=== PATIENT | female | born 1990 | race Caucasian/White ===

== ENCOUNTER 2025-02-06 14:57 | Emergency (ER) | payer MEDICARE ==
--- NOTE | 2025-02-06 15:52 | CT ---
EXAMINATION TYPE: CT abdomen pelvis wo con CT DLP: 701.1 mGycm, Automated exposure control for dose reduction was used. DATE OF EXAM: 02/06/2025 3:42 PM COMPARISON: none CLINICAL INDICATION:Female, 34 years old with history of Right flank pain; Right flank pain TECHNIQUE: Standard CT of the abdomen and pelvis without IV or oral contrast. Lack of IV or oral co ntrast limits evaluation of solid and hollow organ viscera. Coronal and sagittal reformats were perfo rmed. FINDINGS: LOWER CHEST: Unremarkable noncontrast appearance ABDOMEN LIVER: Unremarkable noncontrast appearance GALLBLADDER AND BILE DUCTS: Unremarkable noncontrast appearance PANCREAS: Unremarkable noncontrast appearance SPLEEN: Unremarkable noncontrast appearance ADRENAL GLANDS: Unremarkable noncontrast appearance. KIDNEYS AND URETERS: No evidence of hydronephrosis. No hydroureter or ureteral calculus identified. T here is a 1.0 cm calculus within the right renal pelvis. Additional nonobstructing right renal lower pole 2 mm calculus. PELVIS BLADDER: Incompletely distended but grossly unremarkable. REPRODUCTIVE: Unremarkable noncontrast appearance ABDOMEN & PELVIS STOMACH AND BOWEL: Stomach and duodenum are unremarkable. No focal bowel wall thickening or surroundi ng inflammatory changes. The appendix is not identified. No inflammatory changes within the right low er quadrant. No evidence of bowel obstruction. PERITONEUM: No evidence of pneumoperitoneum or free fluid. VASCULATURE: No evidence of aortic aneurysm. MUSCULOSKELETAL: No acute osseous abnormalities LYMPH NODES: No gross evidence for lymphadenopathy. SOFT TISSUE/ABDOMINAL WALL: Focal region of left lower back subcutaneous tissue fat necrosis. IMPRESSION: No evidence for obstructive uropathy however there is a 1 cm calculus within the right renal pelvis. Additional punctate nonobstructing right renal lower pole calculus. [facility], , 02/06/2025 3:50 PM
--- NOTE | 2025-02-06 16:02 | ED ---
Abdominal Pain HPI - General Source: patient, RN notes reviewed Mode of arrival: ambulatory Limitations: no limitations <Jessica Álvarez - Last Filed: 02/06/25 15:59> - General Source: patient, RN notes reviewed, old records reviewed Mode of arrival: ambulatory Limitations: no limitations - History of Present Illness MD Complaint: flank pain Location: LLQ Radiation: suprapubic Migration to: L flank Severity: severe Severity scale (1-10): 9 Quality: stabbing Consistency: constant <Sukhwinder Salcido - Last Filed: 02/07/25 04:34> - General Chief Complaint: Abdominal Pain Stated Complaint: Possible kidney stone Time Seen by Provider: 02/06/25 15:50 - History of Present Illness Initial Comments: Quick Note: This is a 34 year old female who presents to the emergency department for right flank pain. States that it had been intermittent over the last week, however today it has been constant and she had associated nausea and vomiting. Reports a history of kidney stones and states that it feels similar. (Jessica Álvarez) This is a 34-year-old female from [place] for kidney stones. Patient has a history of kidney stones and this feels the same (Sukhwinder Salcido) - Related Data Previous Rx's Medication Instructions Recorded Ketorolac [Toradol] 10 mg PO Q6HR #20 tab 02/06/25 Tamsulosin [Flomax] 0.4 mg PO DAILY #7 cap 02/06/25 Allergies Allergy/AdvReac Type Severity Reaction Status Date / Time amoxicillin Allergy Rash/Hives Verified 02/06/25 15:26 Review of Systems ROS Other: All systems not noted in ROS Statement are negative. <Jessica Álvarez - Last Filed: 02/06/25 15:59> ROS Other: All systems not noted in ROS Statement are negative. <Sukhwinder Salcido - Last Filed: 02/07/25 04:34> ROS Statement: Those systems with pertinent positive or pertinent negative responses have been documented in the HPI. Past Medical History Past Medical History: No Reported History History of Any Multi-Drug Resistant Organisms: None Reported Past Surgical History: Section Additional Past Surgical History / Comment(s): kidney stone removal Past Psychological History: No Psychological Hx Reported Smoking Status: Current every day smoker Past Alcohol Use History: None Reported Past Drug Use History: Cocaine <Jessica Álvarez - Last Filed: 02/06/25 15:59> General Exam Limitations: no limitations <Jessica Álvarez - Last Filed: 02/06/25 15:59> - General Exam Comments Initial Comments: Visual Physical Exam Vital signs reviewed General: Well-appearing, nontoxic, no acute distress. Head: Normocephalic, atraumatic Eyes: PERRLA, EOMI ENT: Airway patent Chest: Nonlabored breathing Skin: No visual rash, normal skin tone Neuro: Alert and oriented 3 Musculoskeletal: No gross abnormalities (Jessica Álvarez) Course <Sukwhinder Salcido - Last Filed: 02/07/25 04:34> Vital Signs 02/06/25 02/06/25 15:23 23:01 Temperature 98.1 F 98.7 F Pulse Rate 62 63 Respiratory 16 19 Rate Blood Pressure 97/63 120/91 O2 Sat by Pulse 99 96 Oximetry - Reevaluation(s) Reevaluation #1: 02/07/25 04:33 Medical records reviewed (Sukhwinder Salcido) Reevaluation #2: 02/07/25 04:33 Patient's symptoms improved (Sukhwinder Salcido) Reevaluation #3: 02/07/25 04:33 Patient informed of results questions answered (Sukhwinder Salcido) Reevaluation #4: Was pt. sent in by a medical professional or institution (, PA, OIL FIELD RIG BUILDER, urgent care, hospital, or [place] health [place] facility...) When possible be specific @ -no Did you speak to anyone other than the patient for history (EMS, parent, family, police, friend...)? What history was obtained from this source @ -no Did you review nursing and triage notes (agree or disagree)? Why? @ -agree Are old charts reviewed (outside hosp., previous admission, EMS record, old EKG, old radiological studies, urgent care reports/EKG's, [place] health [place] facility records)? Report findings @ -yes Differential Diagnosis (chest pain, altered mental status, abdominal pain women, abdominal pain men, vaginal bleeding, weakness, fever, dyspnea, syncope, headache, dizziness, GI bleed, back pain, seizure, CVA, palpatations, mental health, musculoskeletal)? @ -prior EKG interpreted by me (3pts min.). @ -yes X-rays interpreted by me (1pt min.). @ -yes negative for acute disease CT interpreted by me (1pt min.). @ -no U/S interpreted by me (1pt. min.). @ -no What testing was considered but not performed or refused? (CT, X-rays, U/S, labs)? Why? @ -none What meds were considered but not given or refused? Why? @ -none Did you discuss the management of the patient with other professionals (pro fessionals i.e. , PA, OIL FIELD RIG BUILDER, lab, RT, psych nurse, social services technician, closet builder, teacher, senior escrow officer, case filler)? Give summary @ -no Was smoking cessation discussed for >3mins.? @ -no Was critical care preformed (if so, how long)? @ -no Were there social determinants of health that impacted care today? How? (Homelessness, low income, unemployed, alcoholism, drug addiction, transportation, low edu. Level, literacy, decrease access to med. care, correction, rehab)? @ -none Was there de-escalation of care discussed even if they declined (Discuss DNR or withdrawal of care, Hospice)? DNR status @ -no What co-morbidities impacted this encounter? (DM, HTN, Smoking, COPD, CAD, Cancer, CVA, ARF, Chemo, Hep., AIDS, mental health diagnosis, sleep apnea, morbid obesity)? @ -none Was patient admitted / discharged? Hospital course, mention meds given and route, prescriptions, significant lab abnormalities, going to OR and other pertinent info. @ - Undiagnosed new problem with uncertain prognosis? @ -no Drug Therapy requiring intensive monitoring for toxicity (Heparin, Nitro, Insulin, Cardizem)? @ -no Were any procedures done? @ -no Diagnosis/symptom? @ - Acute, or Chronic, or Acute on Chronic? @ -Acute Uncomplicated (without systemic symptoms) or Complicated (systemic symptoms)? @ -Complicated Side effects of treatment? @ -no Exacerbation, Progression, or Severe Exacerbation? @ -exacerbation Poses a threat to life or bodily function? How? (Chest pain, [place], [place], pneumonia, PE, COPD, DKA, ARF, appy, cholecystitis, CVA, Diverticulitis, Homicidal, Suicidal, threat to staff... and all critical care pts) @ -yes (uSkhwinder Salcido) Reevaluation #5: Differential Abdominal Pain Women: Appendicitis, Cholecystitis, diverticulosis, ischemic bowel, pancreatitis, hepatitis, UTI, gastroenteritis, AAA, incarcerated hernia, bowel obstruction, constipation, inflammatory bowel, hepatitis, peptic ulcer disease, splenic infarction, perforated viscus, vulvitis, ovarian torsion, PID, kidney stone, placenta abruption, this is not meant to be an all-inclusive list (Sukhwinder Salcido) Medical Decision Making <Jessica Álvarez - Last Filed: 02/06/25 15:59> - Lab Data Result diagrams: 02/06/25 16:39 02/06/25 16:39 - Radiology Data Radiology results: report reviewed (CT of pelvis positive kidney stone), image reviewed <Sukhwinder Salcido - Last Filed: 02/07/25 04:34> - Medical Decision Making I performed the QuickNote portion of this chart. Signed Jessica Álvarez PA-C. (Jessica Álvarez) 34 female with abdominal pain kidney stone pain pain is well-controlled here in the ER no opiates allowed patient can be discharged home (Sukhwinder Salcido) - Lab Data Lab Results 02/06/25 02/06/25 02/06/25 Range/Units 15:44 15:45 16:39 WBC 7.93 (4.50-10.00) 10*3/uL RBC 4.65 (4.10-5.20) 10*6/uL Hgb 13.7 (12.0-15.0) g/dL Hct 40.1 (37.2-46.3) % MCV 86.2 (80.0-97.0) fL MCH 29.5 (27.0-32.0) pg MCHC 34.2 (32.0-37.0) g/dL Plt Count 270 (140-440) 10*3/uL MPV 10.3 (9.5-12.2) fL Immature Gran % (Auto) 0.3 % Neutrophils % 51.3 % Lymphocytes % 40.7 % Monocytes % 5.7 % Eosinophils % 1.5 % Basophils % 0.5 % Immature Gran # 0.02 (0.00-0.04) 10*3/uL Neutrophils # 4.07 (1.80-7.70) 10*3/uL Lymphocytes # 3.23 (0.90-5.00) 10*3/uL Monocytes # 0.45 (0.20-1.00) 10*3/uL Eosinophils # 0.12 (0.04-0.35) 10*3/uL Basophils # 0.04 (0.00-0.10) 10*3/uL Sodium (137-145) mmol/L Potassium (3.5-5.1) mmol/L Chloride (98-107) mmol/L Carbon Dioxide (22-30) mmol/L Anion Gap mmol/L BUN (7-17) mg/dL Creatinine (0.52-1.04) mg/dL Est GFR (CKD-EPI)AfAm (>60 ml/min/1.73 sqM) Est GFR (CKD-EPI)NonAf (>60 ml/min/1.73 sqM) Glucose (74-99) mg/dL Calcium (8.4-10.2) mg/dL Total Bilirubin (0.2-1.3) mg/dL AST (14-36) U/L ALT (4-34) U/L Alkaline Phosphatase (38-126) U/L Total Protein (6.3-8.2) g/dL Albumin (3.5-5.0) g/dL Urine Color Colorless Urine Appearance Cloudy H (Clear) Urine pH 5.5 (5.0-8.0) Ur Specific [place] 1.021 (1.001-1.035) Urine Protein Negative (Negative) Urine Glucose (UA) Negative (Negative) Urine Ketones Negative (Negative) Urine Blood Moderate H (Negative) Urine Nitrite Negative (Negative) Urine Bilirubin Negative (Negative) Urine Urobilinogen <2.0 (<2.0) mg/dL Ur Leukocyte Esterase Trace H (Negative) Urine RBC >182 H (0-5) /hpf Urine WBC 13 H (0-5) /hpf Ur Squamous Epith Cells 7 H (0-4) /hpf Urine Mucus Rare H (None) /hpf Urine HCG, Qual Not Detected (Not Detectd) 02/06/25 Range/Units 16:39 WBC (4.50-10.00) 10*3/uL RBC (4.10-5.20) 10*6/uL Hgb (12.0-15.0) g/dL Hct (37.2-46.3) % MCV (80.0-97.0) fL MCH (27.0-32.0) pg MCHC (32.0-37.0) g/dL Plt Count (140-440) 10*3/uL MPV (9.5-12.2) fL Immature Gran % (Auto) % Neutrophils % % Lymphocytes % % Monocytes % % Eosinophils % % Basophils % % Immature Gran # (0.00-0.04) 10*3/uL Neutrophils # (1.80-7.70) 10*3/uL Lymphocytes # (0.90-5.00) 10*3/uL Monocytes # (0.20-1.00) 10*3/uL Eosinophils # (0.04-0.35) 10*3/uL Basophils # (0.00-0.10) 10*3/uL Sodium 137 (137-145) mmol/L Potassium 4.4 (3.5-5.1) mmol/L Chloride 106 (98-107) mmol/L Carbon Dioxide 24 (22-30) mmol/L Anion Gap 7 mmol/L BUN 15 (7-17) mg/dL Creatinine 0.55 (0.52-1.04) mg/dL Est GFR (CKD-EPI)AfAm >90 (>60 ml/min/1.73 sqM) Est GFR (CKD-EPI)NonAf >90 (>60 ml/min/1.73 sqM) Glucose 91 (74-99) mg/dL Calcium 9.5 (8.4-10.2) mg/dL Total Bilirubin 0.2 (0.2-1.3) mg/dL AST 18 (14-36) U/L ALT 13 (4-34) U/L Alkaline Phosphatase 54 (38-126) U/L Total Protein 6.6 (6.3-8.2) g/dL Albumin 4.3 (3.5-5.0) g/dL Urine Color Urine Appearance (Clear) Urine pH (5.0-8.0) Ur Specific [place] (1.001-1.035) Urine Protein (Negative) Urine Glucose (UA) (Negative) Urine Ketones (Negative) Urine Blood (Negative) Urine Nitrite (Negative) Urine Bilirubin (Negative) Urine Urobilinogen (<2.0) mg/dL Ur Leukocyte Esterase (Negative) Urine RBC (0-5) /hpf Urine WBC (0-5) /hpf Ur Squamous Epith Cells (0-4) /hpf Urine Mucus (None) /hpf Urine HCG, Qual (Not Detectd) Disposition <Jessica Álvarez - Last Filed: 02/06/25 15:59> Is patient prescribed a controlled substance at d/c from ED?: No Time of Disposition: 22:00 <Sukhwinder Salcido - Last Filed: 02/07/25 04:34> Clinical Impression: Kidney stones Disposition: HOME SELF-CARE Condition: Good Instructions (If sedation given, give patient instructions): Kidney Stones (ED) Prescriptions: Tamsulosin [Flomax] 0.4 mg PO DAILY #7 cap Ketorolac [Toradol] 10 mg PO Q6HR #20 tab Referrals: None,Stated [Primary Care Provider] - 1-2 days
[2025-02-06 16:06] LABS: Appearance,Urine Cloudy (Clear); Bilirubin,Urine Negative (Negative); Blood,Urine Moderate (Negative); Color,Urine Colorless; Glucose,Urine (UA) Negative (Negative); Ketones,Urine Negative (Negative); Leukocyte Esterase,Urine Trace (Negative); Mucus,Urine Rare /hpf; Nitrite,Urine Negative (Negative); PH, Urine 5.5 (5.0-8.0); Protein,Urine Negative (Negative); RBC,Urine >182 /hpf (0-5); Specific Gravity,Urine 1.021 (1.001-1.035); Squamous Epithelial Cell,Urine 7 /hpf (0-4); Urobilinogen,Urine <2.0 mg/dL (<2.0); WBC,Urine 13 /hpf (0-5)
[2025-02-06 16:46] LABS: Basophils # (A) 0.04 10*3/uL (0.00-0.10); Basophils % (A) 0.5 %; Eosinophils # (A) 0.12 10*3/uL (0.04-0.35); Eosinophils % (A) 1.5 %; HCT 40.1 % (37.2-46.3); HGB 13.7 g/dL (12.0-15.0); Lymphocytes # (A) 3.23 10*3/uL (0.90-5.00); Lymphocytes % (A) 40.7 %; MCH 29.5 pg (27.0-32.0); MCHC 34.2 g/dL (32.0-37.0); MCV 86.2 fL (80.0-97.0); Mean Platelet Volume 10.3 fL (9.5-12.2); Monocytes # (A) 0.45 10*3/uL (0.20-1.00); Monocytes % (A) 5.7 %; Neutrophils # (A) 4.07 10*3/uL (1.80-7.70); Neutrophils % (A) 51.3 %; Platelet Count 270 10*3/uL (140-440); RBC 4.65 10*6/uL (4.10-5.20); RDW 12.2 % (11.5-14.5); WBC 7.93 10*3/uL (4.50-10.00)
[2025-02-06 17:07] LABS: ALT 13 U/L (4-34); AST 18 U/L (14-36); African American GFR (CKD) >90 (>60 ml/min/1.73 sqM); Albumin 4.3 g/dL (3.5-5.0); Alkaline Phosphatase 54 U/L (38-126); Anion Gap 7 mmol/L; Blood Urea Nitrogen 15 mg/dL (7-17); Calcium 9.5 mg/dL (8.4-10.2); Carbon Dioxide 24 mmol/L (22-30); Chloride 106 mmol/L (98-107); Glucose 91 mg/dL (74-99); Non-African American GFR(CKD) >90 (>60 ml/min/1.73 sqM); Potassium 4.4 mmol/L (3.5-5.1); Sodium 137 mmol/L (137-145); Total Bilirubin 0.2 mg/dL (0.2-1.3); Total Protein 6.6 g/dL (6.3-8.2)
[2025-02-06] MEDS: ACETAMINOPHEN TAB 500 MG TAB PO STA (22:24)
[2025-02-06] MEDS: TAMSULOSIN 0.4 MG CAP.ER.24H PO STA (22:24)
[2025-02-06] MEDS: ONDANSETRON ODT 4 MG TAB PO STA (22:26)
[2025-02-06] MEDS: KETOROLAC 15 MG/ML 1 ML VIAL IM STA (22:26)
[2025-02-06 23:03] VITALS: BP 120/91; PULSE 63; RESP 19; TEMP 98.7
== END 2025-02-06 23:03 | disposition home or self-care (01) ==
LOC: EC 14:57
DX: N20.0 Calculus of kidney (principal); F17.200 Nicotine dependence, unspecified, uncomplicated; Z88.0 Allergy status to penicillin
CPT/HCPCS: 80053; 85025; 81025; 87086; 74176; 99284; 96372; J1885; 36415; 81001